=== PATIENT | male | born 1955 ===

== ENCOUNTER → 2021-04-01 08:09 | Outpatient (ROUT) | payer OTHER, SELFPAY ==
[2021-04-14 14:57] LABS: Bacteria Det by PCR Univ WA SEE SEPERATE REPORT
== END ==
PROVIDERS: Visit Provider Orthopaedic Surgery Adult Reconstructive Orthopaedic Surgery
DX: M00.80 Arthritis due to other bacteria, unspecified joint (principal)
CPT/HCPCS: 87801